=== PATIENT | male | born 1975 | race Caucasian/White ===

== ENCOUNTER 2018-05-09 21:10 | Emergency (ER) | payer OTHER ==
[2018-05-09 21:30] VITALS: BP 121/78; PULSE 88; TEMP 98.3; BMI 26.6
--- NOTE | 2018-05-09 21:41 | PDOC ---
Rapid Medical Evaluation Chief Complaint: Back Pain Time Seen by Provider: 05/09/18 21:25 Medical Evaluation: 05/09/18 21:28 43 year old male right flank pain AND LOWER BACK PAIN reports that he was at work a wood panel struck against the wall. patient was given pain medication and muscle relaxant with no relief in pain. PE; Patient alert ox3, right flank pain, + lumbar area tenderness a; low back pain P: ua xray patient to the Er for further management of care. Discharge Disposition - Diagnosis Back pain Qualifiers: Back pain location: low back pain Chronicity: acute Back pain laterality: right Sciatica presence: without sciatica Qualified Code(s): M54.5 - Low back pain - Referrals - Patient Instructions - Post Discharge Activity
[2018-05-09 22:06] LABS: URINE APPEARANCE CLEAR; URINE BILIRUBIN NEGATIVE (<2.0 mg/dL); URINE COLOR YELLOW; URINE GLUCOSE (UA) NEGATIVE (NEGATIVE); URINE KETONE TRACE (NEGATIVE); URINE LEUK ESTERASE NEGATIVE (NEGATIVE); URINE NITRITE NEGATIVE (NEGATIVE); URINE PROTEIN NEGATIVE (NEGATIVE); URINE UROBILINOGEN 4.0 E.U/dl mg/dL (0.2-1.0)
--- NOTE | 2018-05-09 23:17 | PDOC ---
*Physical Exam - Vital Signs Last Vital Signs Temp Pulse Resp BP Pulse Ox 98.3 F 88 20 121/78 100 05/09/18 21:27 05/09/18 21:27 05/09/18 21:27 05/09/18 21:27 05/09/18 21:27 - Physical Exam Comments: 05/09/18 23:16 The patient was examined by [JANICE Monet] under my direct supervision. I personally evaluated the patient. I concur with the above findings and the plan of care. ED Treatment Course - ADDITIONAL ORDERS Additional order review: Laboratory Results 05/09/18 22:00 Urine Color Yellow Urine Appearance Clear Urine pH 7.0 Ur Specific [place] 1.017 Urine Protein Negative Urine Glucose (UA) Negative Urine Ketones Trace H Urine Blood Negative Urine Nitrite Negative Urine Bilirubin Negative Urine Urobilinogen 4.0 e.u/dl Ur Leukocyte Esterase Negative *DC/Admit/Observation/Transfer Diagnosis at time of Disposition: Back pain Qualifiers: Back pain location: low back pain Chronicity: acute Back pain laterality: right Sciatica presence: without sciatica Qualified Code(s): M54.5 - Low back pain - Referrals - Patient Instructions - Post Discharge Activity
--- NOTE | 2018-05-10 01:21 | PDOC ---
History of Present Illness - General Chief Complaint: Back Pain Stated Complaint: LOWER BACK PAIN Time Seen by Provider: 05/09/18 21:25 History Source: Patient Exam Limitations: No Limitations Past History - Past Medical History Allergies/Adverse Reactions: Allergies Allergy/AdvReac Type Severity Reaction Status Date / Time No Known Allergies Allergy Verified 05/09/18 21:30 Home Medications: Ambulatory Orders Oxycodone HCl/Acetaminophen [Percocet 5-325 mg Tablet] 1 tab PO Q4H PRN #18 tablet MDD 6 05/10/18 COPD: No - Suicide/Smoking/Psychosocial Hx Smoking History: Current every day smoker Have you smoked in the past 12 months: Yes Number of Cigarettes Smoked Daily: 10 Information on smoking cessation initiated: No Hx Alcohol Use: No Drug/Substance Use Hx: No *Physical Exam - Vital Signs Last Vital Signs Temp Pulse Resp BP Pulse Ox 98.3 F 88 20 121/78 100 05/09/18 21:27 05/09/18 21:27 05/09/18 21:27 05/09/18 21:27 05/09/18 21:27 - Physical Exam General Appearance: No: Apparent Distress HEENT: positive: Other (no head trauma) Neck: positive: Supple. negative: Rigid, Rigidity, Tender midline Respiratory/Chest: positive: Lungs Clear, Normal Breath Sounds, Other (no chest ecchymosis, no step off palpable). negative: Chest Tender, Respiratory Distress Cardiovascular: positive: Regular Rhythm, Regular Rate, S1, S2. negative: Murmur Gastrointestinal/Abdominal: positive: Normal Bowel Sounds, Soft, Other (no flank ecchymosis noted). negative: Tender, Distended, Guarding, Rebound Musculoskeletal: positive: CVA Tenderness (R), Other (no tenderness along spine or paraspinal muscles). negative: Vertebral Tenderness Neurologic: positive: decision science analyst II-XII NML intact, Fully Oriented, Alert, Normal Mood/ Affect, Motor Strength 5/5 Moderate Sedation - Procedure Monitoring Vital Signs: Procedure Monitoring Vital Signs Temperature 98.3 F 05/09/18 21:27 Pulse Rate 88 05/09/18 21:27 Respiratory Rate 20 05/09/18 21:27 Blood Pressure 121/78 05/09/18 21:27 O2 Sat by Pulse Oximetry (%) 100 05/09/18 21:27 ED Treatment Course - ADDITIONAL ORDERS Additional order review: Laboratory Results 05/09/18 22:00 Urine Color Yellow Urine Appearance Clear Urine pH 7.0 Ur Specific [place] 1.017 Urine Protein Negative Urine Glucose (UA) Negative Urine Ketones Trace H Urine Blood Negative Urine Nitrite Negative Urine Bilirubin Negative Urine Urobilinogen 4.0 e.u/dl Ur Leukocyte Esterase Negative - RADIOLOGY Radiology Studies Ordered: Category Date Time Status ABDOMEN & PELVIS CT W/O CONTR [CT] Stat CT Scan 05/10/18 00:14 Taken - Medications Given in the ED: ED Medications Discontinued Medications Generic Name Dose Route Start Last Admin Trade Name Freq PRN Reason Stop Dose Admin Oxycodone/Acetaminophen 1 combo 05/09/18 23:48 05/10/18 00:02 Percocet 5/325 - PO 05/09/18 23:49 1 combo ONCE ONE Administration Medical Decision Making - Medical Decision Making 43 y/o M with no sig pmh, works as construction site crossing guard, presents with R flank pain from today. States wood plank slipped and hit him along anterior chest wall , causing him to slide back and get pinned to wall. Denies headache, neck pain, back pain, sob, cp, abd pain, n/v, hematuria. Went to urgent care center where he was given Naprosyn and Robaxin which patient took. Patient felt slightly better after meds, but still in significant pain with movement so came to ED. Denies weakness/numbness of extremities, bowel/bladder incontinence, saddle/ groin paresthesia Could likely be MSK pain Patient given Percocet Will get CT A/P to r/o kidney injury or other possible trauma 05/10/18 01:18 CT shows L1-L3 transverse process fracture and R posterior 11th and 12th rib fractures; no damage to organs noted CXR and R series also obtained - no acute displaced rib fracture noted Patient recommended for admission for further evaluation by NSGY However, patient refusing to stay, stating he does not want to stay in the hospital Patient's pain is improved and is ambulating around ED Risks of not getting evaluated explained, but patient refused Patient is signing out AMA; is A&Ox3 and has capacity to make decisions 05/10/18 02:08 *DC/Admit/Observation/Transfer Diagnosis at time of Disposition: Lumbar transverse process fracture Qualifiers: Encounter type: initial encounter Fracture type: closed Qualified Code(s): S32.009A - Unspecified fracture of unspecified lumbar vertebra, initial encounter for closed fracture Rib fracture Qualifiers: Encounter type: initial encounter Rib fracture type: multiple ribs Fracture type: closed Laterality: right Qualified Code(s): S22.41XA - Multiple fractures of ribs, right side, initial encounter for closed fracture - Discharge Dispostion Disposition: AGAINST MEDICAL ADVICE Condition at time of disposition: Stable Decision to Admit order: No - Prescriptions Prescriptions: Oxycodone HCl/Acetaminophen [Percocet 5-325 mg Tablet] 1 tab PO Q4H PRN #18 tablet MDD 6 PRN Reason: Pain - Referrals Referrals: Nile Zavala MD, FAANS [Staff Physician] - Call tomorrow - Patient Instructions Printed Discharge Instructions: DI for Rib Fracture Additional Instructions: Thank you for choosing [facility]. It was a pleasure taking care of you. You were noted to have fractures along lumbar spine and 2 rib fractures You were recommended to stay to get evaluated by neurosurgeon but refused admission Risks of not getting evaluated include worsening of condition, disability. Recommend wearing a back brace You may take Motrin 600 mg every 6 hours by mouth as needed for mild to moderate pain. Take Motrin with food. For severe pain, you may take Percocet. This medication can make you constipated for which you may take over the counter Senna tablets as needed. This medication can also make you drowsy so please be cautious with driving or performing heavy physical work. Return to the Emergency Department if your symptoms worsen or persist or have other concerning symptoms. - Post Discharge Activity
== END 2018-05-10 02:37 | disposition left against medical advice (07) ==
LOC: JERFT 21:10 → JER 21:10
DX: M54.5 Low back pain (principal); F17.210 Nicotine dependence, cigarettes, uncomplicated; S32.009A Unspecified fracture of unspecified lumbar vertebra, initial encounter for closed fracture; S22.41XA Multiple fractures of ribs, right side, initial encounter for closed fracture
CPT/HCPCS: 71046-TC-FY; 71101-TC-RT-FY; 72100-TC-FY; 74176-TC; 81003; 99281-25

== ENCOUNTER 2018-05-22 17:27 | Emergency (ER) | payer BC, OTHER ==
[2018-05-22 18:23] VITALS: BP 116/73; PULSE 85; TEMP 98.3; BMI 26.6
--- NOTE | 2018-05-22 18:23 | PDOC ---
Rapid Medical Evaluation Time Seen by Provider: 05/22/18 18:18 Medical Evaluation: Allergies Allergy/AdvReac Type Severity Reaction Status Date / Time No Known Allergies Allergy Verified 05/22/18 18:19 I have performed a brief in-person evaluation of this patient. The patient presents with a chief complaint of: patient seen recently with spinal fractures and was seen by neurologist, Dr. Means, who wanted MRI of full spine but states takes 2 hours and patient too anxious to stay in MRI for that long; per Dr. Means, patient was advised to come to ED to get admitted so he can placed under anesthesia while getting MRI I have ordered the following: Labs The patient will proceed to the ED for further evaluation. 05/22/18 18:20
== END 2018-05-22 19:56 | disposition left against medical advice (07) ==
LOC: JER 17:27
DX: M54.9 Dorsalgia, unspecified (principal)
CPT/HCPCS: 99281-25